=== PATIENT | female | born 1950 | race Caucasian/White ===

== ENCOUNTER → 2017-07-08 | Outpatient (CLI) | payer MEDICARE ==
[~2017-07-08] MED LIST: ALBU8.5H12 IH; AMLO-101 PO; AMLO-96 PO; AMLO-99 PO; CEP500 PO; DIPH-1 PO; ENAL20TA99 PO; ENALAPRIL; GUAI10LI10 PO; HCTZ25 PO; HYDR-2966 PO; HYDR-317 PO; HYDR-385 PO; HYDROCHLOROTHIAZIDE; LOR5/325 PO; MET50 PO; METO1TAB28 PO; METO25TA91 PO; METO50TA19 PO; METOPROLOL; ONDA8TAB94 PO; PRAV20TA65 PO; PRE20 PO; PRED20TA6 PO; PRO25 PO; TRAZ-156 PO; TRIA15OI20 TP; ZOLP-358 PO
[2017-07-08 16:29] LABS: PLATELET COUNT, AUTOMATED 203 K/uL (150-450)
[2017-07-08 16:37] LABS: INR 0.93
--- NOTE | 2017-07-08 16:58 | EKG ---
[place] [facility] [place] NAME: TENA KRISHNAMURTHY : [id number] MR: [id number] V: [id number] EXAM DATE: ORDERING PHYSICIAN: LORETTA OTERO TECHNOLOGIST: BAYLEE Ray Reason : PREOP Blood Pressure : / mmHG Vent. Rate : 069 BPM Atrial Rate : 069 BPM P-R Int : 136 ms QRS Dur : 082 ms QT Int : 424 ms P-R-T Axes : 082 078 078 degrees QTc Int : 454 ms Sinus rhythm with premature atrial complexes Otherwise normal ECG When compared with ECG of 20-DEC-2014 14:48, premature atrial complexes are now present Referred By: SHANNA Confirmed By:
--- NOTE | 2017-07-08 17:00 | RADIOLOGY IMAGING REPORT ---
[place] [facility] [place] Ita Resendiz : 1950 MR: [id number] V: [id number] EXAM DATE: ORDERING PHYSICIAN: LORETTA OTERO TECHNOLOGIST: [place] [facility] [place]end[place] : 1950 Visit/Account:[id number] Date of Sevice: 07/08/2017 Chest 2 views: HISTORY: Preop exam for internal medicine. Hyperlipidemia. Hypertension. COMPARISON: 12/20/2014 FINDINGS: Frontal and lateral chest: Cardiomediastinal silhouette is within normal limits. There is n o infiltrate, pleural effusion or pneumothorax. Pulmonary vasculature is normal. Atherosclerotic changes are present in the aorta. Degenerative changes are present in the thoracic sp ine. IMPRESSION: No evidence of acute cardiopulmonary abnormality. There is no significant interval change . Report Dictated By: Alka Mcdermott MD at 07/08/2017 4:51 PM Report E-Signed By: Alka Mcdermott MD at 07/08/2017 4:55 PM WSN:[id number]
== END ==
LOC: LAB 15:54
PROVIDERS: ATTEND Internal Medicine
DX: Z01.818 Encounter for other preprocedural examination (principal); E78.5 Hyperlipidemia, unspecified; I10 Essential (primary) hypertension; I70.0 Atherosclerosis of aorta; M19.90 Unspecified osteoarthritis, unspecified site; I49.1 Atrial premature depolarization; R82.99 Other abnormal findings in urine
CPT/HCPCS: 36415; 71020; 81001; 82040; 82247; 82310; 82374; 82435; 82565; 82947; 84075; 84132; 84155; 84295; 84443; 84450; 84460; 84520; 85025; 85610; 85730; 87088; 93005

== ENCOUNTER → 2017-09-25 | Outpatient (CLI) | payer MEDICARE ==
[~2017-09-25] MED LIST changes: +MECL25TA9 PO
--- NOTE | 2017-09-25 10:56 | RADIOLOGY IMAGING REPORT ---
FACILITY: [facility] PATIENT NAME: Ita Resendiz : 1950 MR: [id number] V: [id number] EXAM DATE: ORDERING PHYSICIAN: LORETTA OTERO TECHNOLOGIST: Location: [facility] Patient: Ita Resendiz : 1950 Visit/Account:[id number] Date of Sevice: 09/25/2017 EXAMINATION: Head CT without intravenous contrast HISTORY: Syncope and vertigo TECHNIQUE: Contiguous axial images were obtained from the skull base to the vertex without intraven ous contrast. Sagittal and coronal reformatted images are also submitted. COMPARISON: Head CT January 19, 2014 and MR the brain April 06, 2017 FINDINGS: Brain volume: There is mild cortical atrophy. Ventricles: Normal. Acute ischemic changes: None. Hemorrhage: None. Masses / edema: None. James-white: Negative. White matter: There is heterogeneous density within the lina. Abnormal signal intensity was noted o n the prior MR from April 06, 2017. Subtle patchy decreased attenuation in the periventricular w beau matter also noted and was present on the prior MR Vessels: There are calcifications in the carotid siphons and in the left vertebral artery Extra-axial: Negative. Calvarium / scalp: Negative. Skull base / visualized face: Negative. Visualized sinuses / orbits: Negative. IMPRESSION: Mild diffuse cortical atrophy There is heterogeneous density within the lina. Abnormal signal intensity was identified in the prio r MR from April 06, 2017. Depending upon patient's clinical presentation a repeat MR may be of v alue. Subtle patchy decreased attenuation the periventricular white matter was present on the prior MR and likely represents chronic small vessel ischemia Vascular calcifications in the carotid siphons and the left vertebral artery. Report Dictated By: Cecelia Roque MD at 09/25/2017 10:44 AM Report E-Signed By: Cecelia Roque MD at 09/25/2017 10:52 AM WSN:[email or web address]
[2017-09-25 10:57] LABS: PLATELET COUNT, AUTOMATED 255 K/uL (150-450)
--- NOTE | 2017-09-25 11:31 | EKG ---
FACILITY: [facility] PATIENT NAME: TENA KRISHNAMURTHY : [id number] MR: [id number] V: [id number] EXAM DATE: ORDERING PHYSICIAN: LORETTA OTERO TECHNOLOGIST: EDNA Test Reason : SYNCOPE Blood Pressure : / mmHG Vent. Rate : 074 BPM Atrial Rate : 074 BPM P-R Int : 132 ms QRS Dur : 086 ms QT Int : 416 ms P-R-T Axes : 077 068 080 degrees QTc Int : 461 ms Normal sinus rhythm ST and T wave abnormality, consider inferior ischemia Abnormal ECG When compared with ECG of 08-JUL-2017 16:39, premature atrial complexes are no longer present T wave inversion now evident in Inferior leads Nonspecific T wave abnormality now evident in Lateral leads Referred By: Confirmed By:
== END ==
LOC: RAD 09:59
PROVIDERS: ATTEND Internal Medicine
DX: I65.22 Occlusion and stenosis of left carotid artery (principal); G31.89 Other specified degenerative diseases of nervous system; R94.02 Abnormal brain scan
CPT/HCPCS: 36415; 70450; 81001; 82040; 82247; 82310; 82374; 82435; 82565; 82947; 84075; 84132; 84155; 84295; 84450; 84460; 84484; 84520; 85025

== ENCOUNTER → 2017-09-29 | Outpatient (CLI) | payer MEDICARE ==
[~2017-09-29] MED LIST changes: +GADOBENATE 529MG/1ML 15ML VIAL IVP ONE
--- NOTE | 2017-09-29 15:32 | RADIOLOGY IMAGING REPORT ---
FACILITY: [facility] [place] PATIENT NAME: Ita Resendiz : 1950 MR: [id number] V: [id number] EXAM DATE: ORDERING PHYSICIAN: LORETTA OTERO TECHNOLOGIST: Location: [facility] Patient: Ita Resendiz : 1950 Visit/Account:[id number] Date of Sevice: 09/29/2017 Examination: MR brain without and with contrast History: Syncope Comparison: April 06, 2017 Technique: Multiplane MR imaging was performed through the brain without and with contrast. 11 cc IV gadobenate was administered. Findings: Diffusion: None Ventricles: Normal Midline shift: None Extraxial fluid: None Midline craniocervical structures: Normal Parenchyma: Mild unchanged atrophy. Unchanged mild patchy high signal in the lina. Multifocal unchang ed small white matter unchanged high signal patches. Enhancement: No pathologic enhancement Vascular flow voids: Normal Orbits and paranasal sinuses: Normal Impression: 1. No acute finding. 2. Mild to moderate unchanged chronic small vessel ischemic change. 3. Mild unchanged atrophy. Report Dictated By: Elio Horton MD at 09/29/2017 3:23 PM Report E-Signed By: Elio Horton MD at 09/29/2017 3:27 PM WSN:[email or web address]
== END ==
LOC: MRI 06:50
PROVIDERS: ATTEND Internal Medicine
DX: I67.82 Cerebral ischemia (principal); G31.89 Other specified degenerative diseases of nervous system
CPT/HCPCS: 70553; A9577

== ENCOUNTER 2018-07-07 14:29 | Emergency (ER) | payer MEDICARE ==
[~2018-07-07 14:29] MED LIST changes: +AMLO-111 PO; +AMLO-113 PO; -AMLO-96 PO; -AMLO-99 PO; +ATOR20TA65 PO; -GADOBENATE 529MG/1ML 15ML VIAL IVP ONE; -TRAZ-156 PO; +TRAZ50TA34 PO
[2018-07-07 14:39] VITALS: BP 146/83
--- NOTE | 2018-07-07 14:45 | ER Report ---
History and Physical Time Seen By MD: 14:45 Hx. of Stated Complaint: LEFT TOE INJURY HPI/ROS CHIEF COMPLAINT: toe injury HISTORY OF PRESENT ILLNESS: This is a 68 year old female. She had an injury to her left toe. Jammed toe and hyperflexed. [place] and heard a pop. Matrix of proximal nail popped out of fold, and now back in place, but bleeding from this area. Painful. States toe is always stiff, but hurts to try to move it. Has chr onic onychomycosis. Allergies: Coded Allergies: Penicillins (Verified Allergy, Severe, ANAPHYLAXIS, 01/07/15) tetracycline (Verified Allergy, Severe, ANAPHYLAXIS, 01/07/15) Home Meds Active Scripts Cephalexin Monohydrate (CEPHALEXIN) 500 Mg Cap, 500 MG PO Q6H, #20 CAP 0 Refills Prov:ML ASHRAF MD 07/07/18 Atorvastatin Calcium (ATORVASTATIN CALCIUM) 20 Mg Tablet, 1 TAB PO QDAY, #90 TAB 3 Refills Prov:LORETTA OTERO MD 02/08/18 Amlodipine Besylate (AMLODIPINE BESYLATE) 10 Mg Tablet, 1 TAB PO QDAY, #90 TAB 3 Refills Prov:LORETTA OTERO MD 02/08/18 Meclizine Hcl (MECLIZINE HCL) 25 Mg Tablet, 25 MG PO TID PRN for dizziness, #30 TAB Prov:LORETTA OTERO MD 09/25/17 Reviewed Nurses Notes: Yes Hx Smoking: Yes (1/2ppd) Smoking Status: Former Smoker Hx Substance Use Disorder: No Hx Alcohol Use: No Constitutional Vital Sign - Last 24 Hours 07/07/18 14:39 Temp 97.8 Pulse 87 Resp 20 B/P (MAP) 146/83 Pulse Ox 96 Physical Exam General: Alert, no distress. Musculoskeletal: Pain distal and middle phalanx area. Once digital block done, can slightly flex and extend, but very minimal, although she says this is always stiff for her. Skin: proximal nail fold bleeding. Looks like nail matrix was avulsed, but is seated back with the skin of the proximal fold over the nail. No other laceration noted. Chronic onychomycosis of the nail. Neuro: Prior to nerve block, normal sensation. Cardiovascular: Normal capillary refill. Medical Decision Making ED Course/Re-evaluation ED Course Imaging with fracture as noted above. Discussed with Dr. Mercado. 2 interrupted sutures placed to anchor the nail in place. Dr. Mercado will follow-up with her in the office. Patient in a walking boot. Re-evaluation Procedure: Proximal nail fold avulsion repair Verbal consent from patient after discussing repair options, risks and benefits. Wound cleaned extensively with Hibiclens and saline. Anesthesia: digital block with 1% lidocaine without epinephrine and 0.5% bupivacaine without epinephrine. Location: left great toe. Length: n/a. proximal nail fold. No tendon injury was identified. Wound repair: 2 interrupted sutures to anchor the nail down. The repair was simple and performed by myself. Wound care instructions discussed. Sutures to be removed by orthopedic surgery. Tetanus booster given. Cephalexin 500mg four times a day for 5 days. Decision to Disposition Date: Jul 07, 2018 Decision to Disposition Time: 16:30 Depart Departure Latest Vital Signs Vital Signs Date Time Temp Pulse Resp B/P (MAP) Pulse Ox O2 Delivery O2 Flow Rate FiO2 07/07/18 14:39 97.8 87 20 146/83 96 Impression: Primary Impression: Toe fracture, left Additional Impression: Toenail avulsion Condition: Improved Disposition: HOME OR SELF-CARE Referrals: LORETTA OTERO MD (PCP) JODIE MERCADO MD New Scripts Cephalexin Monohydrate (CEPHALEXIN) 500 Mg Cap 500 MG PO Q6H, #20 CAP 0 Refills Prov: ML ASHRAF MD 07/07/18 Patient Instructions: Toe Fracture (ED) Additional Instructions: Ibuprofen 200mg over the counter tablets, take 4 tablets three times a day with food. Use the Walking boot. Change the dressing once a day. Wash with soap and water, dry and a dry bandage. Call [facility], Dr. Mercado, who will see you for follow-up in the office. Take the antibiotic Cephalexin 500mg 4 times a day for 5 days. Problem Qualifiers Primary Impression: Toe fracture, left Encounter type: initial encounter Toe: great toe Fracture type: open Phalanx: proximal Fracture alignment: displaced Qualified Codes: S92.412B - Displaced fracture of proximal phalanx of left great toe, initial encounter for open fracture Additional Impression: Toenail avulsion Encounter type: initial encounter Qualified Codes: S91.209A - Unspecified open wound of unspecified toe(s) with damage to nail, initial encounter ML ASHRAF MD Jul 07, 2018 14:45
--- NOTE | 2018-07-07 15:40 | RADIOLOGY IMAGING REPORT ---
[place] [facility] [place] Ita Resendiz : 1950 MR: [id number] V: [id number] EXAM DATE: ORDERING PHYSICIAN: ML ASHRAF TECHNOLOGIST: [place] [facility] [place] Res[place] : 1950 Visit/Account:[id number] Date of Sevice: 07/07/2018 TOE RIGHT FOOT GREAT TOE Indication: toe injury Comparison: None. Findings: There is a minimally displaced avulsion fracture at the base of the distal phalanx of the t oe, on the dorsal side. The proximal phalanx and the first metatarsal are intact. Soft tissues are normal. IMPRESSION: Minimally displaced avulsion fracture at the base of the distal phalanx right big toe, on the dorsal side. Report Dictated By: Uriah Nyaak at 07/07/2018 3:34 PM Report E-Signed By: Uriah Nayak at 07/07/2018 3:36 PM WSN:[email or web address]
[2018-07-07] MEDS ORDERED: CEPH500C24 PO (16:31)
[2018-07-07] MEDS ORDERED: DIPHTH/TETANUS/ACEL. PERTUSSIS IM ONLY ONE (16:50)
== END 2018-07-07 17:05 | disposition home or self-care (01) ==
LOC: ER 14:49
DX: S92.412B Displaced fracture of proximal phalanx of left great toe, initial encounter for open fracture (principal)
CPT/HCPCS: 90471; 90715; 99283

== ENCOUNTER → 2018-09-16 | Outpatient (CLI) | payer MEDICARE ==
[~2018-09-16] MED LIST changes: -AMLO-111 PO; -AMLO-113 PO; +AMLO-125 PO; +AMLO-127 PO; +CEPH500C24 PO; +IOPAMIDOL 76% 100 ML INFUS BTL 100 ML ONE
--- NOTE | 2018-09-16 14:40 | RADIOLOGY IMAGING REPORT ---
FACILITY: [facility] [place] PATIENT NAME: Ita Resendiz : 1950 MR: [id number] V: [id number] EXAM DATE: ORDERING PHYSICIAN: SAL BERNSTEIN TECHNOLOGIST: Location: [facility] [place] Patient: Ita Resendiz : 1950 Visit/Account:[id number] Date of Sevice: 09/16/2018 CT ABDOMEN PELVIS W/ CON HISTORY: Diarrhea TECHNIQUE: Following administration of IV contrast contiguous axial images acquired through the abdom en/pelvis. Coronal and sagittal reformatting also performed.Dose Lowering Technique One of the following dose optimization techniques was utilized in the performance of this exam: Autom ated exposure control; adjustment of the mA and/or kV according to the patient's size; or use of an i terative reconstruction technique. Specific details can be referenced in the facility's radiology C T exam operational policy. CONTRAST: 75 mL Isovue-370 COMPARISON: CTA chest December 20, 2014 FINDINGS: Visualized lung bases: Incompletely imaged is a 3 mm noncalcified subpleural nodule lateral aspect o f the left lower lobe best seen on image one of series 3. There is a 2 mm noncalcified nodule latera l aspect left lower lobe best seen on image eight. Is a 2 mm noncalcified nodule lateral aspect left lower lobe best seen on image 25 There is a 2 mm noncalcified nodule anterior aspect left lower lobe best seen on image 32 . These nodules appear stable when compared to the prior CT of the chest from 2014 Hepatobiliary: Negative. Spleen: Negative. Adrenals: Negative. Pancreas: Negative. Kidneys ureters or bladder: There appear to be parapelvic cysts in the left kidney Genitalia: Hysterectomy GI: There is fluid and stool seen throughout the right side of the colon and transverse colon. The left-sided colon is relatively decompressed. . There are several mildly prominent fluid-filled loop s of small bowel in the left side of the abdomen without evidence of transitional point may represent mild localized ileus, clinical correlation needed Vessels/spaces/nodes: There moderate atherosclerotic calcifications in the abdominal aorta and branc h vessels. There is 1.3 x 1 cm left periaortic lymph node just below the level of the left renal vein. There is a 1.3 x 0.7 cm aortocaval lymph node just below the level of the left renal vein . There are shott y mesenteric lymph nodes Bones/soft tissues: There moderate spondylotic changes lumbar spine Additional findings: None pertinent. IMPRESSION: Fluid and stool seen throughout the right side of the colon and the transverse colon. The left-sided colon is relatively decompressed. There are several mildly prominent fluid-filled loops of small efli wel the left side of the abdomen without apparent transitional point and may represent mild localized ileus. Clinical correlation needed i.e. presence or absence of bowel sounds Mild retroperitoneal adenopathy which could be reactive. Short-term interval follow-up recommended Additional chronic findings as described Report Dictated By: Cecelia Roque MD at 09/16/2018 2:22 PM Report E-Signed By: Cecelia Roque MD at 09/16/2018 2:36 PM EDWARDN:HERMAN
== END ==
LOC: CT 00:50
PROVIDERS: ATTEND Family Medicine
DX: N28.1 Cyst of kidney, acquired (principal); I70.0 Atherosclerosis of aorta; M47.896 Other spondylosis, lumbar region; R19.7 Diarrhea, unspecified; R10.9 Unspecified abdominal pain
CPT/HCPCS: 74177; 83630; 87045; 87177; 87269; 87324; 87449; Q9967; 83993

== ENCOUNTER 2018-11-02 00:25 | Day surgery (SDC) | payer MEDICARE ==
--- NOTE | 2018-10-19 16:57 | NUR ---
BASED ON THE PT'S CONCERN ABOUT HER AIRWAY, [facility] AND THE MENTIONED SURGERY WERE OBTAINED. THERE IS NO RECORD OF THE DIFFICULTIES SHE STATED SHE HAD WITH AIRWAY. SHE STATED SHE HAD A TRACH TO BREATHE AND WHEN ASKED ABOUT ETT, SHE STATES, 'NOT THE ONE THAT GOES DOWN YOUR THROAT, THE ONE THAT COMES OUT YOUR NECK'. SHE WAS INSISTANT SO THESE RECORDS WERE SENT FOR WITH HER PERMISSION. THE RECORDS JUST STATE SHE WAS INTUBATED AT START OF CASE AND EXTUBATED AT THE END AND THERE WERE NO DIFFICULTIES. THESE RECORDS ARE ATTACHED TO CURRENT CHART.
[~2018-11-02] VITALS: Ht 149.9 cm; Wt 55.6 kg
[~2018-11-02 00:25] MED LIST changes: +ATR80PT PO; +CALC500T6 PO; +CHOL4PAC14 PO; -IOPAMIDOL 76% 100 ML INFUS BTL 100 ML ONE; +LOSA100T75 PO; +ZOLP-1 PO
[2018-11-02] MEDS ORDERED: NORMOSOL R SOLN(*) 1000 ML BAG 1,000 ML IV PRN (07:15)
[2018-11-02] MEDS ORDERED: LIDOCAINE/SOD BICARB 8.4% SYR ID ONE (07:15)
[2018-11-02] MEDS ORDERED: PROPOFOL EMUL(*) 10MG/ML 20 ML 60 ML ONE (07:29)
[2018-11-02] MEDS ORDERED: LIDOCAINE MPF 1% 5 ML VIAL ONE (07:29)
[2018-11-02] MEDS ORDERED: KETAMINE HCL 200 MG/20 ML MDV ONE (07:34)
[2018-11-02 07:38] VITALS: BP 143/67
[2018-11-02 10:00] VITALS: BP 113/58
--- NOTE | 2018-11-02 10:13 | Short(Outpt) Discharge Summary ---
Discharge Summary Reason for Hosp/Final Diag: (1) Chronic diarrhea Hospital Course & Plan: pt presented for egd colonoscopy. she had some coughing and desat during egd but the procedure was completed and these resolved. path pending. she will be discharged home when criteria met. Discharge Instructions Home Meds Active Scripts Atorvastatin Calcium (ATORVASTATIN CALCIUM) 20 Mg Tablet, 1 TAB PO QDAY, #90 TAB 3 Refills Prov:LORETTA OTERO MD 02/08/18 Reported Medications Losartan Potassium (LOSARTAN POTASSIUM) 100 Mg Tablet, 100 MG PO QDAY 09/24/18 Zolpidem Tartrate (AMBIEN) 5 Mg Tablet, 1 TAB PO QHS, TAB 09/24/18 Cholestyramine/Aspartame (CHOLESTYRAMINE LIGHT PACKET) 4 Gm Powd.pack, 4 GM PO 09/24/18 Diet: Regular Activity: As Tolerated Special Instructions: we will call you in 10 days with results. HERMINIA SANDS Nov 02, 2018 10:13
[2018-11-02 10:30] VITALS: BP 131/74
[2018-11-02 11:00] VITALS: BP 154/67
[2018-11-02 11:03] VITALS: BP 151/73
[2018-11-02 11:04] VITALS: BP 142/74
== END 2018-11-02 11:18 | disposition home or self-care (01) ==
LOC: OR 00:25
PROVIDERS: ATTEND Surgery
DX: K22.2 Esophageal obstruction (principal); K21.0 Gastro-esophageal reflux disease with esophagitis; K29.70 Gastritis, unspecified, without bleeding
CPT/HCPCS: 00813; 43239; 43249; 45380; 87077; 88305; 88342; J2001; J2704; J3490

== ENCOUNTER → 2018-11-10 | Outpatient (REF) | payer MEDICARE ==
[~2018-11-10] MED LIST changes: +BUDE9TAB2 PO; +CHLOR25 FT; +CYCL10TA29 PO
== END ==
LOC: ZZSENDIN 14:53
PROVIDERS: ATTEND Family Medicine
DX: R55 Syncope and collapse (principal)
CPT/HCPCS: 81001

== ENCOUNTER 2018-11-11 17:54 | Emergency (ER) | payer MEDICARE ==
[~2018-11-11 17:54] MED LIST changes: -BUDE9TAB2 PO; -CHLOR25 FT; -CYCL10TA29 PO
[2018-11-11] MEDS ORDERED: CHLOR25 FT (18:10)
--- NOTE | 2018-11-11 18:15 | ER Report ---
History and Physical Time Seen By MD: 18:15 Hx. of Stated Complaint: pt has been having h/a and hi bp this week, was started on a new med (chlorthalidone) today, feels her bp is getting higher. Was told by MD to come here HPI/ROS CHIEF COMPLAINT: Headache, elevated blood pressure HISTORY OF PRESENT ILLNESS: This is a 68-year-old female. She has been having problems with chronic headache and pain in the back of her neck for several years now. This continues to be a problem. Also recently had elevation of her blood pressure. She had addition of chlorthalidone to her blood pressure regimen, took a half dose today at about 2:00 and then another half of the 25 mg tablet a couple hours later. Feels like her headache is worsening and the blood pressure was increasing sore doctor had her come here. She does have a follow-up tomorrow with her doctor. On arrival in the ER her blood pressure actually has improved. She denies any chest pain. She denies shortness of breath. No nausea or vomiting. Denies any vision changes. No weakness or numbness in any of the extremities. Allergies: Coded Allergies: Penicillins (Verified Allergy, Severe, ANAPHYLAXIS, 10/18/18) tetracycline (Verified Allergy, Severe, ANAPHYLAXIS, 10/18/18) Home Meds Active Scripts Cyclobenzaprine Hcl (CYCLOBENZAPRINE HCL) 10 Mg Tablet, 10 MG PO Q8H PRN for MUSCLE SPASMS, #20 TAB 0 Refills Prov:ML ASHRAF MD 11/11/18 Atorvastatin Calcium (ATORVASTATIN CALCIUM) 20 Mg Tablet, 1 TAB PO QDAY, #90 TAB 3 Refills Prov:LORETTA OTERO MD 02/08/18 Reported Medications Chlorthalidone (CHLORTHALIDONE) 25 Mg Tab, 25 MG FT, TAB 11/11/18 Losartan Potassium (LOSARTAN POTASSIUM) 100 Mg Tablet, 100 MG PO QDAY 09/24/18 Zolpidem Tartrate (AMBIEN) 5 Mg Tablet, 1 TAB PO QHS, TAB 09/24/18 Discontinued Reported Medications Cholestyramine/Aspartame (CHOLESTYRAMINE LIGHT PACKET) 4 Gm Powd.pack, 4 GM PO 09/24/18 Reviewed Nurses Notes: Yes Hx Smoking: Yes (1/2ppd X 58 YRS.) Smoking Status: Former Smoker Hx Substance Use Disorder: No Hx Alcohol Use: No Constitutional Vital Sign - Last 24 Hours 11/11/18 11/11/18 11/11/18 11/11/18 17:54 18:03 18:05 18:09 Temp 97.8 Pulse ??? 84 80 Resp 20 25 B/P (MAP) 179/84 179/84 (115) Pulse Ox 92 93 O2 Delivery Room Air 11/11/18 11/11/18 11/11/18 11/11/18 18:15 18:24 18:30 18:39 Pulse 77 76 Resp 8 21 B/P (MAP) 162/83 (109) 163/86 (111) Pulse Ox 92 91 11/11/18 11/11/18 11/11/18 11/11/18 18:44 18:59 19:14 19:29 Pulse 84 72 75 68 Resp 29 19 11 27 Pulse Ox 92 91 90 93 11/11/18 11/11/18 11/11/18 11/11/18 19:34 19:39 19:44 19:49 Pulse 75 71 76 76 Resp 19 8 31 47 Pulse Ox 90 90 90 90 11/11/18 11/11/18 11/11/18 11/11/18 19:54 19:59 20:04 20:09 Pulse 71 74 83 80 Resp 14 22 23 19 B/P (MAP) 176/101 (126) Physical Exam General Appearance: The patient is alert. No acute distress. Eyes: Pupils are equal, round. Reactive to light. No pallor, injection or icterus. Extraocular movements are intact. ENT: Mucous membranes are moist. Normal oral mucosa. Posterior oropharynx is normal. Neck: Supple and non tender. Respiratory: Lungs are clear to auscultation. Cardiovascular: Regular rate and rhythm. No murmurs, gallops or rubs. Normal capillary refill. No edema. Neurological: Alert and oriented x3. Cranial nerves II through XII show no acute deficits on my exam. No focal neurologic deficits in the extremities. Skin: Warm and dry. No rashes. Musculoskeletal: Has some pain posterior neck diffusely. DIFFERENTIAL DIAGNOSIS: After history and physical exam, differential diagnosis was considered for patient with elevated blood pressure, just started on new blood pressure medicine, chlorthalidone, which now seems to be kicking in and working. The neck pain and headaches seem to be chronic for her. Medical Decision Making Data Points Result Diagram: 11/11/18 1849 11/11/18 1849 Laboratory Hematology Test 11/11/18 18:49 Red Blood Count 5.40 M/uL (4.17-5.56) Mean Corpuscular Volume 86.2 fL (80.0-96.0) Mean Corpuscular Hemoglobin 29.0 pg (26.0-33.0) Mean Corpuscular Hemoglobin Concent 33.6 g/dL (32.0-36.0) Red Cell Distribution Width 14.3 % (11.5-14.5) Mean Platelet Volume 9.1 fL (7.2-11.1) Neutrophils (%) (Auto) 66.3 % (39.4-72.5) Lymphocytes (%) (Auto) 26.3 % (17.6-49.6) Monocytes (%) (Auto) 5.8 % (4.1-12.4) Eosinophils (%) (Auto) 1.0 % (0.4-6.7) Basophils (%) (Auto) 0.6 % (0.3-1.4) Nucleated RBC Relative Count (auto) 0.1 /100WBC Neutrophils # (Auto) 5.5 K/uL (2.0-7.4) Lymphocytes # (Auto) 2.2 K/uL (1.3-3.6) Monocytes # (Auto) 0.5 K/uL (0.3-1.0) Eosinophils # (Auto) 0.1 K/uL (0.0-0.5) Basophils # (Auto) 0.0 K/uL (0.0-0.1) Nucleated RBC Absolute Count (auto) 0.01 K/uL Sodium Level 139 mmol/L (137-145) Potassium Level 3.8 mmol/L (3.5-5.0) Chloride Level 107 mmol/L (98-107) Carbon Dioxide Level 25 mmol/L (22-31) Blood Urea Nitrogen 15 mg/dl (7-18) Creatinine 1.00 mg/dl (0.52-1.04) Glomerular Filtration Rate Calc 55.3 Random Glucose 106 mg/dl (75-110) Calcium Level 9.4 mg/dl (8.4-10.2) Total Bilirubin 0.1 mg/dl (0.2-1.3) Aspartate Amino Transf (AST/SGOT) 24 U/L (0-35) Alanine Aminotransferase (ALT/SGPT) 30 U/L (0-56) Alkaline Phosphatase 103 U/L (0-126) Troponin I < 0.012 ng/ml Total Protein 7.4 g/dl (6.3-8.2) Albumin 4.4 g/dl (3.5-5.0) Chemistry Test 11/11/18 18:49 White Blood Count 8.2 k/uL (4.5-11.0) Red Blood Count 5.40 M/uL (4.17-5.56) Hemoglobin 15.6 g/dL (12.0-16.0) Hematocrit 46.5 % (34.0-47.0) Mean Corpuscular Volume 86.2 fL (80.0-96.0) Mean Corpuscular Hemoglobin 29.0 pg (26.0-33.0) Mean Corpuscular Hemoglobin Concent 33.6 g/dL (32.0-36.0) Red Cell Distribution Width 14.3 % (11.5-14.5) Platelet Count 179 K/uL (150-450) Mean Platelet Volume 9.1 fL (7.2-11.1) Neutrophils (%) (Auto) 66.3 % (39.4-72.5) Lymphocytes (%) (Auto) 26.3 % (17.6-49.6) Monocytes (%) (Auto) 5.8 % (4.1-12.4) Eosinophils (%) (Auto) 1.0 % (0.4-6.7) Basophils (%) (Auto) 0.6 % (0.3-1.4) Nucleated RBC Relative Count (auto) 0.1 /100WBC Neutrophils # (Auto) 5.5 K/uL (2.0-7.4) Lymphocytes # (Auto) 2.2 K/uL (1.3-3.6) Monocytes # (Auto) 0.5 K/uL (0.3-1.0) Eosinophils # (Auto) 0.1 K/uL (0.0-0.5) Basophils # (Auto) 0.0 K/uL (0.0-0.1) Nucleated RBC Absolute Count (auto) 0.01 K/uL Glomerular Filtration Rate Calc 55.3 Calcium Level 9.4 mg/dl (8.4-10.2) Total Bilirubin 0.1 mg/dl (0.2-1.3) Aspartate Amino Transf (AST/SGOT) 24 U/L (0-35) Alanine Aminotransferase (ALT/SGPT) 30 U/L (0-56) Alkaline Phosphatase 103 U/L (0-126) Troponin I < 0.012 ng/ml Total Protein 7.4 g/dl (6.3-8.2) Albumin 4.4 g/dl (3.5-5.0) EKG/Imaging EKG Interpretation 12 lead EKG: Rhythm: Normal sinus rhythm, rate 75 [place]: normal QRS: normal ST segments: normal ED Course/Re-evaluation ED Course No changes recommended this time. I did recommend she continue the chlorthalidone at a full tablet tomorrow morning and then follow-up with her primary care doctor for appointment tomorrow as they are to have planned. We will try some Flexeril and ibuprofen tonight for the headache and neck pain to see if that makes any difference. Decision to Disposition Date: November 11, 2018 Decision to Disposition Time: 20:02 Depart Departure Latest Vital Signs Vital Signs Date Time Temp Pulse Resp B/P (MAP) Pulse Ox O2 Delivery O2 Flow Rate FiO2 11/11/18 20:09 80 19 176/101 (126) 11/11/18 19:49 90 11/11/18 18:03 97.8 Room Air Impression: Primary Impression: Hypertension Additional Impressions: Headache Neck pain Condition: Improved Disposition: HOME OR SELF-CARE Referrals: SAL BERNSTEIN MD (PCP) New Scripts Cyclobenzaprine Hcl (CYCLOBENZAPRINE HCL) 10 Mg Tablet 10 MG PO Q8H PRN for MUSCLE SPASMS, #20 TAB 0 Refills Prov: ML ASHRAF MD 11/11/18 Patient Instructions: Acute Headache (ED), Chronic Hypertension (ED), Chronic Neck Pain (DC) Additional Instructions: Tonight, take Ibuprofen 200mg over the counter tablets, 3 tablets at bedtime. Take Flexeril 10mg, one at bedtime as needed for muscle spasm and pain in the [place]. This medicine will make you drowsy. Take tonight at bedtime. Keep taking a full 25mg tablet of the Clorthalidone, starting tomorrow morning. Follow-up with PCP as planned tomorrow. Problem Qualifiers Primary Impression: Hypertension Hypertension type: essential hypertension Qualified Codes: I10 - Essential (primary) hypertension Additional Impressions: Headache Headache type: unspecified Headache chronicity pattern: chronic headache Intractability: not intractable Qualified Codes: R51 - Headache ML ASHRAF MD November 11, 2018 18:15
[2018-11-11 19:04] LABS: PLATELET COUNT, AUTOMATED 179 K/uL (150-450)
--- NOTE | 2018-11-11 19:35 | EKG ---
FACILITY: [facility] PATIENT NAME: TENA KRISHNAMURTHY : [id number] MR: [id number] V: [id number] EXAM DATE: ORDERING PHYSICIAN: ML ASHRAF TECHNOLOGIST: GORDON Test Reason : HYPERTENSIOM Blood Pressure : / mmHG Vent. Rate : 075 BPM Atrial Rate : 075 BPM P-R Int : 120 ms QRS Dur : 082 ms QT Int : 384 ms P-R-T Axes : 049 058 072 degrees QTc Int : 428 ms Sinus rhythm Nonspecific ST findings anterior leads Decreased R wave progression anteriorly Confirmed by JUAN CHAVEZ ([id number] on 11/11/2018 11:28:40 PM Referred By: Confirmed By:JUAN CHAVEZ
[2018-11-11] MEDS ORDERED: CYCL10TA29 PO (20:03)
[2018-11-11 20:09] VITALS: BP 176/101
[2018-11-12] MEDS ORDERED: BUDE9TAB2 PO (12:01)
== END 2018-11-11 20:13 | disposition home or self-care (01) ==
LOC: ER 18:29
DX: I10 Essential (primary) hypertension (principal); R51 Headache; M54.2 Cervicalgia
CPT/HCPCS: 70450; 70490; 82040; 82247; 82310; 82374; 82435; 82565; 82947; 84075; 84132; 84155; 84295; 84450; 84460; 84484; 84520; 85025; 93005; 99283

== ENCOUNTER → 2018-11-11 | Outpatient (CLI) | payer MEDICARE ==
--- NOTE | 2018-11-11 14:44 | RADIOLOGY IMAGING REPORT ---
FACILITY: [facility] PATIENT NAME: Ita Resendiz : 1950 MR: [id number] V: [id number] EXAM DATE: ORDERING PHYSICIAN: SAL BERNSTEIN TECHNOLOGIST: Location: [facility] [place] Patient: Ita Resendiz : 1950 Visit/Account:[id number] Date of Sevice: 11/11/[address] scan without contrast HISTORY: Headaches COMPARISONS: None TECHNIQUE: Non-contrast head CT was performed with sagittal and coronal reformations. One of the following dose optimization techniques was utilized in the performance of this exam: autom ated exposure control; adjustment of the mA and/or kV according to patient size; or use of iterative reconstruction technique. Specific details can be referenced in the facility's radiology CT exam ope rational policy. FINDINGS: There is no intracranial hemorrhage, hydrocephalus or midline shift. The basal cisterns, guzman-white differentiation, and convexity sulci are maintained. Normal orbital soft tissues. Atherosclerotic vas cular calcifications noted. Unchanged patchy white matter hypoattenuation. The mastoid air cells are clear. The paranasal sinuses are clear. The osseous structures are normal . IMPRESSION: No acute intracranial abnormality. Unchanged mild to moderate chronic small vessel ischemic change. Report Dictated By: Elio Horton MD at 11/11/2018 2:35 PM Report E-Signed By: Elio Horton MD at 11/11/2018 2:40 PM WSN:[email or web address]
--- NOTE | 2018-11-11 14:55 | RADIOLOGY IMAGING REPORT ---
FACILITY: [facility] PATIENT NAME: Ita Resendiz : 1950 MR: [id number] V: [id number] EXAM DATE: ORDERING PHYSICIAN: SAL BERNSTEIN TECHNOLOGIST: Location: [facility] Patient: Ita Resendiz : 1950 Visit/Account:[id number] Date of Sevice: 11/11/2018 EXAMINATION: CT neck without IV contrast HISTORY: Headaches TECHNIQUE: CT was obtained through the neck without contrast. Sagittal and coronal reformatted im ages were generated. One of the following dose optimization techniques was utilized in the performance of this exam: autom ated exposure control; adjustment of the mA and/or kV according to patient size; or use of iterative reconstruction technique. Specific details can be referenced in the facility's radiology CT exam ope rational policy. COMPARISON: Neck CT angiogram May 11, 2017 FINDINGS: Parotid/submandibular and thyroid glands: Normal. Pharyngeal and retropharyngeal soft tissues: Normal. 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 Laryngeal soft tissues: Normal. Lymph nodes: Negative. Vessels: Bilateral scattered carotid calcified atherosclerotic plaque. Visualized orbits / brain: Negative. Upper chest: Normal. Bones/sinuses/mastoid air cells: Multilevel degenerative cervical foraminal narrowing. C5 and C6 corpectomy defect with intervening vertebral body metallic prosthesis. Anterior plate and s crews extend from C4 through C7. Posterior fusion hardware with paraspinal rods and posterior screws extend from C4 through C7. The hardware is intact. No evidence of hardware loosening. No acute osseou s abnormality. Moderate C3-4 facet arthropathy. Mild to moderate C7-T1 disc space degeneration. IMPRESSION: 1. No acute finding. 2. No neck mass or adenopathy. 3. C4-C7 anterior and posterior fusion hardware and additional post-surgical findings as described ab ove. Report Dictated By: Elio Horton MD at 11/11/2018 2:44 PM Report E-Signed By: Elio Horton MD at 11/11/2018 2:51 PM WSN:[email or web address]
== END ==
LOC: CT 00:28
PROVIDERS: ATTEND Family Medicine
DX: I65.23 Occlusion and stenosis of bilateral carotid arteries (principal)
CPT/HCPCS: 70450; 70490